=== PATIENT | female | born 1945 | race Caucasian/White ===

== ENCOUNTER 2016-09-11 22:50 | Inpatient (IN) | payer MEDICARE, OTHER ==
[~2016-09-11] VITALS: Ht 167.6 cm; Wt 90.9 kg
[2016-09-11] MEDS ORDERED: OPTIRAY 350 100 ML VIAL HMH IV ONE (22:51)
[2016-09-12] VITALS (7 sets, daily range): BP systolic 145–178; RESP 14–20; TEMP 97.5–98.4; Ht 167.6 cm; Wt 90.9 kg
[2016-09-12] MEDS: LISINOPRIL 10 MG TAB PO SCH (11:09)
[2016-09-12] MEDS: lamoTRIgine 100 MG TAB PO SCH ×3 (11:10→20:40)
[2016-09-12] MEDS: FELODIPINE SR 5 MG TAB PO SCH (11:10)
[2016-09-12] MEDS: SOTALOL HCL 120 MG TAB PO SCH ×2 (11:57→20:43)
[2016-09-12] MEDS ORDERED: clonazePAM 0.5 MG TAB PO PRN (17:45)
[2016-09-12] MEDS ORDERED: Atorvastatin 10 MG TAB PO SCH (21:00)
[2016-09-13 03:21] VITALS: BP_SYST 134; RESP 16; TEMP 98.3
[2016-09-13 03:22] VITALS: RESP 16
[2016-09-13 07:39] VITALS: BP_SYST 146; RESP 18; TEMP 98.8
[2016-09-13] MEDS: LISINOPRIL 10 MG TAB PO SCH (09:16)
[2016-09-13] MEDS: FELODIPINE SR 5 MG TAB PO SCH (09:16)
[2016-09-13] MEDS: lamoTRIgine 100 MG TAB PO SCH (09:16)
[2016-09-13] MEDS: SOTALOL HCL 120 MG TAB PO SCH (09:17)
[2016-09-13 10:30] VITALS: BP_SYST 146; RESP 18; TEMP 98.8
== END 2016-09-13 12:22 | disposition home or self-care (01) | DRG 310 ==
LOC: ENRESERVTM → ENRESERVDT → ER 22:50 → ENPENDDIS 09-12 01:04 → EMR 09-12 01:04 → PCU2 09-12 02:44
PROVIDERS: ADMIT Internal Medicine; ATTEND Internal Medicine
DX: I48.91 Unspecified atrial fibrillation (principal); R56.9 Unspecified convulsions; I48.92 Unspecified atrial flutter; M54.2 Cervicalgia; I10 Essential (primary) hypertension; M19.90 Unspecified osteoarthritis, unspecified site; E78.00 Pure hypercholesterolemia, unspecified; N28.9 Disorder of kidney and ureter, unspecified
CPT/HCPCS: 36415; 70450; 70496; 70498; 70553; 71010; 72141; 80053; 80061; 82553; 82565; 82947; 84484; 85025; 85384; 85610; 85730; 93005; 93306